=== PATIENT | female | born 1970 | race Caucasian/White ===

== ENCOUNTER 2022-04-23 19:18 | Emergency (ER) | payer OTHER ==
[~2022-04-23] VITALS: Ht 154.9 cm; Wt 117.9 kg
== END 2022-04-23 22:17 | disposition home or self-care (01) ==
LOC: ER 19:18
DX: R50.9 Fever, unspecified (principal); I10 Essential (primary) hypertension; Z20.822 Contact with and (suspected) exposure to COVID-19

== ENCOUNTER 2023-02-21 06:04 | Emergency (ER) | payer OTHER ==
[~2023-02-21] VITALS: Ht 157.5 cm; Wt 111.6 kg
[2023-02-21] MEDS ORDERED: COZAAR25 MG (06:22)
== END 2023-02-21 12:06 | disposition home or self-care (01) ==
LOC: ER 06:04
DX: M25.562 Pain in left knee (principal); M19.90 Unspecified osteoarthritis, unspecified site

== ENCOUNTER → 2024-08-12 | Emergency (ER) | payer OTHER ==
[~2024-08-12] VITALS: Ht 157.5 cm; Wt 111.6 kg
[~2024-08-12] MED LIST: COZAAR25 MG; LOSARTAN POTASS50 MG PO
== END | disposition home or self-care (01) ==
LOC: ER 14:41
DX: J02.9 Acute pharyngitis, unspecified (principal); H81.10 Benign paroxysmal vertigo, unspecified ear; I10 Essential (primary) hypertension

== ENCOUNTER 2025-02-01 17:05 | Emergency (ER) | payer OTHER ==
[~2025-02-01] VITALS: Ht 154.9 cm; Wt 111.6 kg
[2025-02-01] MEDS ORDERED: METHYLPREDNISOLONE SOD SUCC 125 MG VIAL IV ONE (18:30)
[2025-02-01] MEDS ORDERED: 0.9 % SODIUM CHLORIDE 1,000 ML IV SCH (18:30)
[2025-02-01] MEDS ORDERED: AZITHROMYCIN 500 MG VIAL IV ONE (18:30)
[2025-02-01] MEDS ORDERED: ALBUTEROL SULFATE 3 ML/2.5 MG AMPUL.NEB IH SCH (18:30)
[2025-02-01] MEDS ORDERED: IPRATROPIUM BROMIDE 0.5 MG/2.5 ML AMPUL.NEB IH SCH (18:30)
[2025-02-01 21:14] LABS: BASO % 0.3 % (0.1-1.2); EOS # 0.36 (0.04-0.54); EOS % 3.0 % (0.7-7.0); LYMPH # 3.58 (1.18-3.74); LYMPH % 30.3 % (19.3-53.1); MEAN PLATELET VOLUME 9.90 fl (9.4-12.4); MONO # 0.56 (0.24-0.82); MONO % 4.7 % (4.7-12.5); NEUT # 7.20 (1.56-6.13); NEUT % 61.1 % (34.0-71.1); RED CELL DISTRIBUTION WIDTH 13.7 % (11.6-14.4)
[2025-02-01 21:21] LABS: ERYTHROCYTE SEDIMENTATION RATE 90 mm/hr (0-30)
[2025-02-01 21:37] LABS: ALT/SGPT 41.0 U/L (12-78); AST/SGOT 25.0 U/L (15-37); BILIRUBIN TOTAL 0.39 mg/dL (0.3-1.2); BUN CREA RATIO 13.0 (7.0-25.0); CREATININE SERUM 1.08 mg/dL (0.55-1.02); GFR 52.48; GLOBULINA 4.9 G/DL (2.4-3.5); GLUCOSE FASTING 113.0 mg/dL (65-100); OSMOLALITY SERUM 288.0 MOSM/KG (275-295)
[2025-02-01 23:05] LABS: COVID-19 AG NEGATIVE (NEGATIVE)
[2025-02-01] MEDS ORDERED: BENZONATATE200 M1 PO (23:52)
[2025-02-01] MEDS ORDERED: ALBUTEROL1.25 MG/3 IH (23:52)
[2025-02-01] MEDS ORDERED: ZITHROMAX TRI-500 MG PO (23:52)
[2025-02-01] MEDS ORDERED: ROBITUSSIN COU237 M1 PO (23:52)
[2025-02-02 00:11] VITALS: BP 130/80; O2SAT 100
== END 2025-02-02 00:12 | disposition home or self-care (01) ==
LOC: ER 17:05
PROVIDERS: Student in an Organized Health Care Education/Training Program
DX: J45.998 Other asthma (principal); J20.9 Acute bronchitis, unspecified; Z20.822 Contact with and (suspected) exposure to COVID-19; I10 Essential (primary) hypertension

== ENCOUNTER 2025-03-28 04:51 | Emergency (ER) | payer OTHER ==
[~2025-03-28] VITALS: Ht 157.5 cm; Wt 111.6 kg
[~2025-03-28 04:51] MED LIST changes: +ALBUTEROL1.25 MG/3 IH; +BENZONATATE200 M1 PO; +ROBITUSSIN COU237 M1 PO; +ZITHROMAX TRI-500 MG PO
[2025-03-28] MEDS ORDERED: ACETAMINOPHEN 500 MG GEL..CAP PO ONE ×2 (05:40→08:34)
[2025-03-28] MEDS ORDERED: METHYLPREDNISOLONE SOD SUCC 125 MG VIAL IV STA (05:49)
[2025-03-28] MEDS ORDERED: LEVALBUTEROL HCL 0.63 MG/3 ML SOLUTION IH ONE ×2 (05:53→07:34)
[2025-03-28] MEDS ORDERED: IPRATROPIUM BROMIDE 0.5 MG/2.5 ML AMPUL.NEB IH ONE ×2 (05:53→07:33)
[2025-03-28] MEDS ORDERED: METHYLPREDNISOLONE SOD SUCC 125 MG VIAL ONE (05:54)
[2025-03-28] MEDS ORDERED: LEVALBUTEROL HCL 0.63 MG/3 ML SOLUTION IH SCH (06:00)
[2025-03-28] MEDS ORDERED: IPRATROPIUM BROMIDE 0.5 MG/2.5 ML AMPUL.NEB IH SCH (06:00)
[2025-03-28 07:31] LABS: INR 1.05
[2025-03-28] MEDS ORDERED: ACETAMINOPHEN 500 MG GEL..CAP PO STA (07:32)
[2025-03-28 07:35] LABS: BASO % 0.2 % (0.1-1.2); EOS # 0.04 (0.04-0.54); EOS % 0.5 % (0.7-7.0); LYMPH # 0.57 (1.18-3.74); LYMPH % 6.8 % (19.3-53.1); MEAN PLATELET VOLUME 10.50 fl (9.4-12.4); MONO # 0.56 (0.24-0.82); MONO % 6.7 % (4.7-12.5); NEUT # 7.17 (1.56-6.13); NEUT % 85.1 % (34.0-71.1); RED CELL DISTRIBUTION WIDTH 13.7 % (11.6-14.4)
[2025-03-28 07:38] LABS: URINE APPEARANCE Clear; URINE BILIRRUBIN Negative (NEGATIVE); URINE BLOOD Small; URINE COLOR Yellow; URINE GLUCOSE Negative (NEGATIVE); URINE KETONE Negative (NEGATIVE); URINE LEUKOCYTE Small; URINE NITRATE Positive; URINE PROTEIN Trace (NEGATIVE); URINE UROBILINOGEN 1.0 E.U./dl
[2025-03-28 07:42] LABS: URINE EPITHELIAL CELLS 62.4 uL (0.0-38.8); URINE RBC 32.7 uL (0.0-20.8); URINE WBC 198.2 uL (0.0-23.2)
[2025-03-28 07:42] LABS: ALT/SGPT 36.0 U/L (12-78); AST/SGOT 30.0 U/L (15-37); BILIRUBIN TOTAL 0.74 mg/dL (0.3-1.2); BUN CREA RATIO 10.0 (7.0-25.0); CREATININE SERUM 1.05 mg/dL (0.55-1.02); GFR 54.21; GLOBULINA 4.0 G/DL (2.4-3.5); GLUCOSE FASTING 127.0 mg/dL (65-100); OSMOLALITY SERUM 275.0 MOSM/KG (275-295)
[2025-03-28 07:55] LABS: COVID-19 AG NEGATIVE (NEGATIVE)
[2025-03-28 07:58] LABS: URINE BACTERIA > 9821.5 uL (0.0-1933); URINE CAST 0.14 uL (0.0-1.40)
[2025-03-28 08:13] LABS: ERYTHROCYTE SEDIMENTATION RATE 62 mm/hr (0-30)
[2025-03-28] MEDS ORDERED: CEFTRIAXONE SODIUM 2,000 MG VIAL IV STA (08:14)
[2025-03-28] MEDS ORDERED: CEFTRIAXONE SODIUM 1,000 MG VIAL IV ONE (08:30)
[2025-03-28] MEDS ORDERED: CEFTRIAXONE SODIUM 2,000 MG VIAL ONE (08:34)
[2025-03-28] MEDS ORDERED: OSELTAMIVIR PHOSPHATE 75 MG CAPSULE PO ONE (08:34)
[2025-03-28] MEDS ORDERED: OSELTAMIVIR PHOSPHATE 75 MG CAPSULE PO SCH (09:00)
[2025-03-28] MEDS ORDERED: PEPCID AC20 MG PO (13:48)
[2025-03-28] MEDS ORDERED: LEVALBUTER0.63 MG/3 IH (13:48)
[2025-03-28] MEDS ORDERED: OSEL75CA PO (13:48)
[2025-03-28] MEDS ORDERED: BACTRIM DS TAB1 EACH PO (13:48)
== END 2025-03-28 14:14 | disposition home or self-care (01) ==
LOC: ER 04:52
PROVIDERS: Physician Assistant Medical
DX: J10.1 Influenza due to other identified influenza virus with other respiratory manifestations (principal); N39.0 Urinary tract infection, site not specified; I10 Essential (primary) hypertension; Z20.822 Contact with and (suspected) exposure to COVID-19; Z87.09 Personal history of other diseases of the respiratory system